=== PATIENT | male | born 1930 | race Caucasian/White ===

== ENCOUNTER 2016-11-09 11:51 | Emergency (ER) | payer MEDICARE, OTHER ==
[2013-09-26 14:28] VITALS: BMI 26.5
[~2016-11-09 11:51] MED LIST: ARICEPT10 MG PO; ASPIRIN325 MG PO; COUMADIN5 MG PO; COZAAR100 MG PO; ENABLEX7.5 MG PO; LOPRESSOR50 MG PO; PREDNISONE5 MG PO
[2016-11-09 14:47] LABS: BASOPHILS 0.2 % (0.0-2.0); HEMATOCRIT 50.4 % (42.0-54.0); HEMOGLOBIN 16.6 g/dL (13.5-17.5); IMMATURE GRANULOCYTES 0.2 % (0-5); LYMPHOCYTES 11.3 % (15-50); MCH 30.6 pg (26.0-34.0); MCHC 32.9 g/dL (31.0-37.0); MEAN PLATELET VOLUME 9.8 fL (7.4-10.4); MONOCYTES 13.1 % (2-11); NEUTROPHILS 74.2 % (40-80); RBC 5.42 10x6/uL (4.20-6.10); RDW 13.8 % (11.5-14.5); WBC 8.2 10x3/uL (4.8-10.8)
[2016-11-09 14:48] LABS: PLATELET COUNT 123 10x3/uL (130-400)
[2016-11-09 15:11] LABS: ALBUMIN 3.1 g/dL (3.4-5.0); ANION GAP 7.4 mmol/L (8-16); BILIRUBIN - TOTAL 0.6 mg/dL (0.2-1.3); CALCIUM 9.5 mg/dL (8.5-10.1); CARBON DIOXIDE 32.1 mmol/L (21.0-32.0); CREATININE - SERUM 1.5 mg/dL (0.6-1.3); POTASSIUM - SERUM 4.5 mmol/L (3.5-5.1)
[2016-11-09 15:53] LABS: APPEARANCE CLEAR (CLEAR); BILIRUBIN NEGATIVE (NEGATIVE); COLOR YELLOW (YELLOW); GLUCOSE NEGATIVE (NEGATIVE); KETONE NEGATIVE (NEGATIVE); LEUKOCYTE ESTERASE NEGATIVE (NEGATIVE); NITRITE NEGATIVE (NEGATIVE); PROTEIN NEGATIVE (NEGATIVE); SPECIFIC GRAVITY 1.015 (1.005-1.020); UROBILINOGEN NORMAL (NORMAL)
== END 2016-11-09 16:37 | disposition home or self-care (01) ==
LOC: D.ER 11:51
PROVIDERS: Emergency Medicine
DX: R10.9 Unspecified abdominal pain (principal); I10 Essential (primary) hypertension; F03.90 Unspecified dementia, unspecified severity, without behavioral disturbance, psychotic disturbance, mood disturbance, and anxiety; I25.10 Atherosclerotic heart disease of native coronary artery without angina pectoris

== ENCOUNTER 2017-02-07 20:42 | Inpatient (IN) | payer MEDICARE, OTHER ==
[~2017-02-07] VITALS: Ht 180.3 cm; Wt 75.6 kg
[2017-02-07 22:52] LABS: BASOPHILS 0.1 % (0-2); EOSINOPHILS 0.3 % (0-7); HEMATOCRIT 46.7 % (42.0-54.0); HEMOGLOBIN 15.4 g/dL (13.5-17.5); IMMATURE GRANULOCYTES 0.3 % (0-5); LYMPHOCYTES 8.7 % (15-50); MCH 30.9 pg (26.0-34.0); MCV 93.6 fL (80.0-100.0); MEAN PLATELET VOLUME 9.6 fL (7.4-10.4); MONOCYTES 10.3 % (2-11); NEUTROPHILS 80.3 % (40-80); PLATELET COUNT 114 10x3/uL (130-400); RBC 4.99 10x6/uL (4.20-6.10); RDW 14.2 % (11.5-14.5); WBC 10.7 10x3/uL (4.8-10.8)
[2017-02-07 23:13] LABS: ALBUMIN 3.1 g/dL (3.4-5.0); ANION GAP 10.9 mmol/L (8-16); BILIRUBIN - TOTAL 1.17 mg/dL (0.2-1.3); CALCIUM 9.2 mg/dL (8.5-10.1); CARBON DIOXIDE 29.3 mmol/L (21.0-32.0); CREATININE - SERUM 1.6 mg/dL (0.6-1.3); POTASSIUM - SERUM 4.2 mmol/L (3.5-5.1); PROTEIN - SERUM 6.4 g/dL (6.4-8.2)
[2017-02-08] VITALS (13 sets, daily range): BP systolic 93–112; BP diastolic 66–86; Ht 180.3 cm; Wt 75.6 kg
--- NOTE | 2017-02-08 09:00 | NUR ---
PT ARRIVED VIA STRETCHER FROM ER. NO FAMILY AT THIS TIME. PT EYES OPEN. DOES NOT FOLLOW COMMANDS. UNABLE TO ANSWER ANY QUESTIONS. HAS PIV TO RIGHT FOREARM. NS AT 75ML/HR. HR 113 UNCONTROLLED A-FIB. TEMP 99.5 ORAL. BP 103/67.
[2017-02-08 09:31] LABS: INR 1.18 (0.85-1.17); PROTIME 14.8 SECONDS (11.6-15.0)
--- NOTE | 2017-02-08 10:04 | NUR ---
SPOKE TO PATIENT KYLE JOHNSON. ASKS FOR DNR ORDER. SAYS THOSE WERE MR. JOHNSON'S WISHES. THIS WAS DISCUSSED WITH MYSELF AND YURI JOHNSON FROM [facility], WHO IS THE PATIENT'S SON.
--- NOTE | 2017-02-08 10:35 | NUR ---
CALLED DR BEATTY OFFICE REGARDING CODE STATUS AND INABILITY TO FOLLOW COMMANDS TO TAKE PO MEDICATIONS. SPOKE WITH ELIO. SHE WILL CALL BACK AFTER HAVING TALKED WITH DR BEATTY. SPOKE WITH DR CARIAS. IS REVIEWING PT XRAY. ASKS FOR NEBULIZER TREATMENT, FLUTTER VALVE AND A SPUTUM CULTURE.
--- NOTE | 2017-02-08 11:03 | NUR ---
DR CARIAS HAS BEEN IN TO SEE PATIENT. SUCTION ATTEMPTED FOR SPECIMEN. UNABLE TO OBTAIN SAMPLE AT THIS TIME. WILL ATTEMPT AGAIN LATER.
[2017-02-08] MEDS ORDERED: NAMENDA XR28 MG PO (12:08)
[2017-02-08] MEDS ORDERED: ALENDRONATE SOD70 MG PO (12:09)
[2017-02-08] MEDS ORDERED: ZYRTEC10 MG PO (12:13)
[2017-02-08] MEDS ORDERED: IPRATROPIUM BR42 MCG NASAL (12:14)
[2017-02-08] MEDS ORDERED: HYDROCODON-ACE1 EAC7 PO (12:15)
--- NOTE | 2017-02-08 12:19 | NUR ---
AT BEDSIDE AT THIS TIME. UPDATE PROVIDED.
--- NOTE | 2017-02-08 13:15 | NUR ---
16F MORENO CATHETER PLACED. NO RESISTANCE MET. NO BLEEDING NOTED. DARK URINE OUTPUT.
--- NOTE | 2017-02-08 15:09 | NUR ---
RELL WITH SPEECH HAS BEEN IN TO DO SWALLOW EVAL. SPOKE WITH ELIO AT DR BEATTY OFFICE. HE HAS BEEN UPDATED TO CODE STATUS. IS OK FOR PATIENT TO BE MOVED TO FLOOR, BUT WOULD LIKE HIM TO STAY IN ICU OVERNIGHT IF POSSIBLE. ASKS THAT HE BE CALLED IF PATIENT NEEDS TO BE MOVED OUT.
--- NOTE | 2017-02-08 15:20 | NUR ---
AND YOUNGEST SON AT BEDSIDE. UPDATE PROVIDED.
--- NOTE | 2017-02-08 16:57 | NUR ---
DR BEATTY CALLED TO ASK ABOUT BEING TALKED TO ABOUT PEG PLACEMENT. TOLD HIM I HAVE NOT DISCUSSED IT WITH HER. HE WAS GOING TO SPEAK TO HER ABOUT IT AND WOULD CALL BACK TO LET US KNOW ABOUT HER DECISION.
--- NOTE | 2017-02-08 18:41 | NUR ---
AT BEDSIDE FOR 1800 VISITATION. HAD QUESTIONS ABOUT HOSPICE. SAID SHE HAS SPOKE WITH DR BEATTY AND HE HAD MENTIONED PATIENT BEING UNABLE TO TAKE ANYTHING ORALLY. SHE SAID HE MENTIONED A FEEDING TUBE PLACEMENT, BUT SHE DID NOT WANT TO HAVE ONE PLACED. IT WAS NOT SOMETHING THE PATIENT WOULD WANT.
--- NOTE | 2017-02-08 19:50 | NUR ---
SPOKE TO DR PARRY WHO IS SPRINKLER FITTER HELPER FOR DR BEATTY THIS EVENING. LET HIM KNOW THAT DR BEATTY HAD SAID EARLIER THE PATIENT COULD BE TRANSFERED TO FLOOR, BUT HE WOULD LIKE TO BE NOTIFIED. DR PARRY WAS NOTIFIED AND WAS OK WITH PATIENT BEING MOVED TO MEDICAL FLOOR.
--- NOTE | 2017-02-08 20:34 | NUR ---
REPORT CALLED TO MARK ANTHONY. PT WILL BE GOING TO ROOM 220.
--- NOTE | 2017-02-08 20:37 | NUR ---
CALLED KYLE AND LET HER KNOW PT WOULD BE MOVING TO ROOM 2201.
[2017-02-09] VITALS (7 sets, daily range): BP systolic 102–140; BP diastolic 50–98
[2017-02-09 05:40] LABS: BASOPHILS 0 % (0-2); EOSINOPHILS 0 % (0-7); HEMATOCRIT 46.1 % (42.0-54.0); HEMOGLOBIN 15.3 g/dL (13.5-17.5); IMMATURE GRANULOCYTES 0.3 % (0-5); MCH 30.5 pg (26.0-34.0); MCHC 33.2 g/dL (31.0-37.0); MCV 91.8 fL (80.0-100.0); MEAN PLATELET VOLUME 9.8 fL (7.4-10.4); MONOCYTES 4.2 % (2-11); NEUTROPHILS 93.5 % (40-80); PLATELET COUNT 114 10x3/uL (130-400); RBC 5.02 10x6/uL (4.20-6.10); RDW 14.2 % (11.5-14.5)
[2017-02-09 05:42] LABS: WBC 15.9 10x3/uL (4.8-10.8)
[2017-02-09 05:48] LABS: INR 1.24 (0.85-1.17); PROTIME 15.5 SECONDS (11.6-15.0)
[2017-02-09 06:05] LABS: ALBUMIN 2.5 g/dL (3.4-5.0); ANION GAP 15.9 mmol/L (8-16); BILIRUBIN - TOTAL 1.17 mg/dL (0.2-1.3); CALCIUM 8.7 mg/dL (8.5-10.1); CARBON DIOXIDE 23.8 mmol/L (21.0-32.0); MAGNESIUM - SERUM 1.9 mg/dL (1.8-2.4); PHOSPHOROUS 2.9 mg/dL (2.5-4.9); POTASSIUM - SERUM 3.7 mmol/L (3.5-5.1); THYROID STIMULATING HORMONE 0.75 uIU/mL (0.36-3.74)
--- NOTE | 2017-02-09 11:03 | NUR ---
CALLED THE DATA ENTRY ASSISTANT, SHE SAID HE IS 93 CONTROLLED AFIB.
--- NOTE | 2017-02-09 11:06 | NUR ---
CALLED PHARMACY NOTIFIED THEM THAT WE DO NOT HAVE AN EXELON PATCH UP HERE. SHE STATED SHE WILL BRING IT UP.
--- NOTE | 2017-02-09 11:35 | NUR ---
CALLED PHARMACY SPOKE WITH KINGS NOTIFIED HER THAT WE DO NOT HAVE ANY CARDIZEM 60MG TABS AND I HAVE IT ORDERED TO GIVE 2200 ANGIE JOHNSON. SHE STATED OKAY I WILL BRING THAT UP.
--- NOTE | 2017-02-09 16:24 | NUR ---
DID NOT COLLECT SPUTUM DUE TO PATIENT NOT HAVING COUGHED OUT ANY SPUTUM.
--- NOTE | 2017-02-09 16:44 | NUR ---
PATIENT HAS MAROON COLORED BLOOD DRAINING INTO THE CATHETER AND DRIPPING FROM PENIS.
--- NOTE | 2017-02-09 16:52 | NUR ---
SPOKE WITH 'S NURSE MARY BALLARD. SHE SAID IS UNABLE TO COME TO THE PHONE SO SHE WILL RELAY THE MESSAGE TO HIM. NOTIFIED HER THAT IT IS URGENT, THAT THE PATIENT HAS MAROON COLORED PURE BLOOD GOING INTO THE CATHETER BAG AND BLOOD DRIPPING AROUND THE CATHETER FROM HIS PENIS. SHE PUT ME ON HOLD, THEN CAME BACK TO THE PHONE AND SAID "HE SAID TO DISCONTINUE THE MORENO CATHETER, AND DO A POST VOID RESIDUAL." I STATED "OKAY, DID YOU TELL HIM THAT IT IS PURE BLOOD? NOT BLOOD TINGED." SHE STATED "YES I TOLD HIM." I STATED "OKAY, WELL I AM WONDERING IF HE WANTS AN H&H ORDERED? ALSO I AM CONCERNED BECAUSE HIS FLUIDS ARE GOING IN AT 125ML/HR SO IN THE PAST 12 HOURS HE HAS HAD IN 1500ML AND ONLY LIKE 325 OUT INCLUDING THE BLOOD. PLUS HE IS DRINKING FLUIDS TOO. AND HIS CREATININE WAS HIGHER TODAY THEN YESTERDAY." SHE STATED "OKAY HOLD ON I WILL TELL HIM." SHE CAME BACK TO THE PHONE AND SAID, "HE SAID JUST WAIT ON THE H&H UNTIL IN THE MORNING. AND JUST CONTINUE TO WATCH HIM."
--- NOTE | 2017-02-09 17:30 | NUR ---
ASSISTED PATIENT WITH DINNER.PATIENT ATE 90%.
[2017-02-10] VITALS: BP 102/66
[2017-02-10 04:00] VITALS: BP 114/70
[2017-02-10 05:10] LABS: BASOPHILS 0 % (0-2); EOSINOPHILS 0 % (0-7); HEMATOCRIT 39.3 % (42.0-54.0); HEMOGLOBIN 12.8 g/dL (13.5-17.5); IMMATURE GRANULOCYTES 0.3 % (0-5); LYMPHOCYTES 1.4 % (15-50); MCHC 32.6 g/dL (31.0-37.0); MEAN PLATELET VOLUME 10.2 fL (7.4-10.4); MONOCYTES 4.1 % (2-11); NEUTROPHILS 94.2 % (40-80); PLATELET COUNT 122 10x3/uL (130-400); RBC 4.27 10x6/uL (4.20-6.10); RDW 14.4 % (11.5-14.5); WBC 17.5 10x3/uL (4.8-10.8)
--- NOTE | 2017-02-10 05:11 | NUR ---
BLADDER SCAN COMPLETED AFTER THE PATIENT HAD INCONTINENT EPISODE. BLADDER SCAN REVEALED 73ML.
--- NOTE | 2017-02-10 05:11 | NUR ---
BLOOD AND SMALL CLOTS NOTED ON BLUE PAD AFTER THE PATIENT URINATED.
[2017-02-10 05:26] LABS: ALBUMIN 2.5 g/dL (3.4-5.0); ANION GAP 14.3 mmol/L (8-16); BILIRUBIN - TOTAL 0.69 mg/dL (0.2-1.3); CALCIUM 8.3 mg/dL (8.5-10.1); CARBON DIOXIDE 23.3 mmol/L (21.0-32.0); CREATININE - SERUM 1.9 mg/dL (0.6-1.3); MAGNESIUM - SERUM 1.9 mg/dL (1.8-2.4); PHOSPHOROUS 2.3 mg/dL (2.5-4.9); POTASSIUM - SERUM 3.6 mmol/L (3.5-5.1); PROTEIN - SERUM 5.5 g/dL (6.4-8.2)
--- NOTE | 2017-02-10 07:35 | NUR ---
PT AOX4 RESP EVEN AND NONLABORED PT DENIES NEEDS AT THIS TIME IV TO LEFT FOREARM PATENT AND INTACT SRX2 BED AT LOWEST SETTING CALL LIGHT WITHIN REACH WILL CONTINUE TO MONITOR
[2017-02-10 08:08] VITALS: BP 120/74
--- NOTE | 2017-02-10 11:06 | NUR ---
* Is the patient Alert and Oriented? Yes 0 * How many steps to enter\exit or inside your home? 0 0 * PCP JACI 0 * [facility] * Preadmission Environment Intermediate 0 * ADLs Total Dependent 0 * Equipment Cane Elevated [place] Seat Rolling Walker Walker Wheelchair 0 * List name and contact numbers for known caregivers / representatives who currently or will assist patient after discharge: Niyah () [phone] 0 * Additional services required to return to the preadmission environment? Yes 0 * Can the patient safely return to the preadmission environment? No 0 * Has this patient been hospitalized within the prior 30 days at any hospital? No 0 Grand Total: 0 Patient Name: ANGIE JOHNSON Admission Status: ER Accout number: [id number] Admission Date: 02-08-2017 : 1932 Admission Diagnosis:ALTERED MENTAL STATUS, UNSPECIFIED Attending: MARC Current LOS: 2 Anticipated DC Date: Planned Disposition: Primary Insurance: MEDICARE A & B Discharge Planning Comments: CM met with patient and (Niyah) to discuss discharge planning/needs. Patient's states that she can not take him home. Dr Martin spoke with patient's family about Hospice Vs. SNF. would like to speak with Hospice to get more information. [facility] referral sent. CM will continue to follow and assist as needed. PCP: [facility] Pharmacy: [facility] Johnson () [phone] Supervisor Final: Radha San
[2017-02-10 12:25] VITALS: BP 116/55
--- NOTE | 2017-02-10 12:26 | NUR ---
NUTRITION MONITORING & EVAL CHART REVIEWED. NOTE POSSIBLE HOSPICE. FAMILY REPORTS PT WITH MINIMAL PO AT BREAKFAST. RD FOLLOWING
--- NOTE | 2017-02-10 14:39 | CN ---
PATIENT NAME:ANGIE JOHNSON JR MEDICAL RECORD: [id number] : 32 LOCATION:[facility] ADMIT DATE: 02/08/17 ACCOUNT: [id number] CONSULTING PHYSICIAN: CLARIBEL OLIVERA MD REFERRING PHYSICIAN: ESME BEATTY DO DATE OF CONSULTATION: 02/09/2017 HISTORY OF PRESENT ILLNESS: An 86-year-old gentleman with a history of worsening mental status, apparently fell on his head over the past several days, cough, fever and chills. He has a history of baseline dementia and currently reports he is feeling fairly well, known to be in atrial fibrillation with rapid ventricular response. He is in chronic atrial fibrillation with Coumadin for CVA prophylaxis. We are asked to see him concerning his cardiovascular status. PAST MEDICAL HISTORY: Per chart includes: 1. History of atrial fibrillation. 2. Dementia. 3. Sick sinus syndrome, status post pacemaker placement. MEDICATIONS: Typically include Namenda 20 mg p.o. q. day, Fosamax ____ mg p.o. q. day, Jackson 5/325 one q. 6 p.r.n., Coumadin per scale, Aricept 10 mg p.o. q.h.s., Enablex 7.5 q. day, Cozaar 100 q. day, metoprolol 50 b.i.d., and prednisone 5 mg daily. ALLERGIES: None known. REVIEW OF SYSTEMS: Unobtainable due to the patient factors. PHYSICAL EXAMINATION: GENERAL: Unkempt gentleman, in no acute distress. VITAL SIGNS: 140/98, pulse 141, irregular. HEENT: Normocephalic and atraumatic. NECK: No bruits are noted. HEART: Irregular, tachycardic, II/ systolic ejection murmur. LUNGS: Fairly good air excursion. ABDOMEN: Soft, nontender. EXTREMITIES: Pulses are 1+. There is no edema. IMPRESSION: Atrial fibrillation, rapid ventricular response, agree with stopping Coumadin given his advanced dementia. Typically, in view of his recent fall at this point in time, we will add oral Cardizem to hopefully help with rate control in addition to his beta blockade. Further recommendations based on the above. TRANSINT:[id number] Voice Confirmation ID: [id number] DOCUMENT ID: [id number] CLARIBEL OLIVERA MD at 1439 CC: [id number] DICTATION DATE: 02/09/17 1041 MOTOR INSPECTION MECHANIC: 02/09/17 1445 ADM IN [place] [id number] [place] [id number]
[2017-02-10 16:59] VITALS: BP 112/62
--- NOTE | 2017-02-10 19:10 | NUR ---
ASSESSMENT COMPLETED, NO ACUTED DISTRESS NOTED, NC IN PLACE @ 2L, L FOREARM IV INFUSING, DENIES PAIN OR NEEDS AT THIS TIME, SR'S UP, BED ALARM ON, CL IN REACH, WILL MONITOR
[2017-02-10 20:00] VITALS: BP 106/67
--- NOTE | 2017-02-10 20:23 | NUR ---
MEDS GIVEN PER MAR WITH HOB @ 90 DEGREES, CELI WELL, SAFETY MEASURES IN PLACE, CL IN REACH
--- NOTE | 2017-02-10 22:28 | NUR ---
SITTING UP IN BED WATCHING TV, NO DISTRESS NOTED, SAFETY MEASURES IN PLACE, WILL CONTINUE TO MONITOR, CL IN REACH
--- NOTE | 2017-02-10 23:49 | NUR ---
RESTING WITH EYES CLOSED, RESP WITH EASE, NC IN PLACE, SR'S UP, ALARM ON, CL IN REACH
[2017-02-11] VITALS: BP 110/68
[2017-02-11 04:00] VITALS: BP 114/69
[2017-02-11 05:15] LABS: ANION GAP 13.7 mmol/L (8-16); CALCIUM 8.4 mg/dL (8.5-10.1); CARBON DIOXIDE 22.7 mmol/L (21.0-32.0); CREATININE - SERUM 1.6 mg/dL (0.6-1.3); POTASSIUM - SERUM 3.4 mmol/L (3.5-5.1)
--- NOTE | 2017-02-11 07:30 | NUR ---
PT AX1 CONFUSED AT TIMES RESP EVEN AND NONLABORED IV TO LEFT FOREARM PATENT AND INTACT SRX2 BED AT LOWEST SETTING CALL LIGHT WITHIN REACH WILL CONTINUE TO MONITOR
[2017-02-11 08:16] VITALS: BP 131/78
[2017-02-11 12:37] VITALS: BP 126/73
[2017-02-11 16:48] VITALS: BP 101/71
--- NOTE | 2017-02-11 19:10 | NUR ---
PT LYING IN BED AWAKE, ASSESSMENT COMPLETED, NO ACUTE DISTRESS NOTED, PLEASANTLY CONFUSED, L FOREARM IV INFUSING, SR'S UP, X2, BED ALARM ON, CL IN REACH, WILL MONITOR
[2017-02-11 20:00] VITALS: BP 99/60
--- NOTE | 2017-02-11 21:18 | NUR ---
LYING IN BED AWAKE, NO DISTRESS NOTED, DENIES PAIN OR NEEDS, FALL PRECAUTIONS IN PLACE, ALARM ON, CL IN REACH
--- NOTE | 2017-02-11 23:23 | NUR ---
NO DISTRESS NOTED, DENIES PAIN OR DISCOMFORT, FALL PRECAUTIONS IN PLACE, CL IN REACH
[2017-02-12] VITALS: BP 109/75
--- NOTE | 2017-02-12 01:16 | NUR ---
RESTING WITH EYES CLOSED, RESP WITH EASE, NO DISTRESS NOTED, FALL PRECAUTIONS IN PLACE, ALARM ON, CL IN REACH
[2017-02-12 04:00] VITALS: BP 114/74
[2017-02-12 06:43] LABS: BASOPHILS 0.1 % (0-2); EOSINOPHILS 0 % (0-7); HEMATOCRIT 39.1 % (42.0-54.0); HEMOGLOBIN 12.6 g/dL (13.5-17.5); IMMATURE GRANULOCYTES 0.4 % (0-5); LYMPHOCYTES 2.1 % (15-50); MCH 30.1 pg (26.0-34.0); MCHC 32.2 g/dL (31.0-37.0); MCV 93.5 fL (80.0-100.0); MEAN PLATELET VOLUME 9.9 fL (7.4-10.4); NEUTROPHILS 92.4 % (40-80); RBC 4.18 10x6/uL (4.20-6.10); RDW 14.6 % (11.5-14.5); WBC 11.8 10x3/uL (4.8-10.8)
[2017-02-12 06:57] LABS: PLATELET COUNT 93 10x3/uL (130-400)
[2017-02-12 07:05] LABS: ANION GAP 14.4 mmol/L (8-16); CALCIUM 8.1 mg/dL (8.5-10.1); CREATININE - SERUM 1.3 mg/dL (0.6-1.3); POTASSIUM - SERUM 4.4 mmol/L (3.5-5.1)
[2017-02-12 07:16] LABS: PLATELET ESTIMATE DECREASED
--- NOTE | 2017-02-12 07:40 | NUR ---
PT CONFUSED AT TIMES RESP EVEN AND NONLABORED IV TO LEFT FOREARM PATENT AND INTACT PT ALERT AND ACTIVE TRYING TO GET OUT OF BED, BED ALARM ACTIVATED AND MONITORING PT CLOSELY SRX2 BED AT LOWEST SETTING CALL LIGHT WITHIN REACH
[2017-02-12 08:38] VITALS: BP 156/72
[2017-02-12 12:13] VITALS: BP 144/73
[2017-02-12 18:49] VITALS: BP 121/61
--- NOTE | 2017-02-12 19:10 | NUR ---
PT LYING IN BED AWAKE, ASSESSMENT COMPLETED, NO ACUTE DISTRESS NOTED, PLEASANTLY CONFUSED, IV TO L FOREARM IN FUSING, SR'S UP, BED ALARM ON, CL IN REACH, WILL MONITOR
[2017-02-12 20:00] VITALS: BP 130/74
--- NOTE | 2017-02-12 20:30 | NUR ---
MEDS GIVEN PER MAR WITH HOB AT 90 DEGREES, NO SWALLOWING PROBLEMS NOTED, CELI WELL, SAFETY MEASURES IN PLACE
--- NOTE | 2017-02-12 21:28 | NUR ---
LYING IN BED AWAKE, NO DISTRESS NOTED, SR'S UP, BED ALARM ON, CL IN REACH
[2017-02-13] VITALS: BP 149/91
--- NOTE | 2017-02-13 01:31 | NUR ---
RESTING WITH EYES CLOSED, NO DISTRESS NOTED, FALL PRECAUTIONS IN PLACE, ALARM ON, CL IN REACH
[2017-02-13 04:00] VITALS: BP 154/91
[2017-02-13 07:50] VITALS: BP 156/83
[2017-02-13 08:20] LABS: BASOPHILS 0.1 % (0-2); EOSINOPHILS 0.1 % (0-7); HEMATOCRIT 40.3 % (42.0-54.0); HEMOGLOBIN 13.3 g/dL (13.5-17.5); IMMATURE GRANULOCYTES 1.2 % (0-5); LYMPHOCYTES 3.5 % (15-50); MCH 29.9 pg (26.0-34.0); MCV 90.6 fL (80.0-100.0); MEAN PLATELET VOLUME 10.3 fL (7.4-10.4); MONOCYTES 7.7 % (2-11); NEUTROPHILS 87.4 % (40-80); PLATELET COUNT 107 10x3/uL (130-400); RBC 4.45 10x6/uL (4.20-6.10); RDW 14.4 % (11.5-14.5); WBC 10.5 10x3/uL (4.8-10.8)
[2017-02-13 08:35] LABS: ALBUMIN 2.6 g/dL (3.4-5.0); BILIRUBIN - TOTAL 0.93 mg/dL (0.2-1.3); CARBON DIOXIDE 22.2 mmol/L (21.0-32.0); POTASSIUM - SERUM 4.2 mmol/L (3.5-5.1); PROTEIN - SERUM 5.5 g/dL (6.4-8.2)
[2017-02-13 09:20] LABS: CALCIUM 8.8 mg/dL (8.5-10.1); CREATININE - SERUM 1.3 mg/dL (0.6-1.3)
--- NOTE | 2017-02-13 09:50 | NUR ---
PATIENT IN LOW [place] POSITION RESTING WITH EYES CLOSED. RESPIRATIONS EVEN AND UNLABORED. SIDE RAILS UP X2. BED IN LOW POSITION. CALL LIGHT IN REACH.
--- NOTE | 2017-02-13 11:51 | NUR ---
Late Entry 1000 Patient's requested discharge to home w/ Hospice. She had spoken with Ms Jordan from [facility] this past week. CM called [facility] and spoke with Janet, the on- call nurse. She will have the [facility] nurse to contact family. The family would like to take the patient home today. The states she will need a hospital bed at home. CM explained the hospice will arrange for necessary equipment. CM provided contact phone for [facility] to call. Awaiting CB.
[2017-02-13 12:32] VITALS: BP 172/105
--- NOTE | 2017-02-13 12:49 | NUR ---
Awaiting [facility] CB. Spoke with patient's . She has not received a call as of this time. She will be returning to home to prepare for discharge.
[2017-02-13 15:48] VITALS: BP 133/77
--- NOTE | 2017-02-13 18:08 | NUR ---
Late entry 1500 CM called Mrs Bingham. She had not heard from [facility]. CM called [facility]. Spoke with the service regarding lack of consideration in confirming the referral for a known patient. The had been waiting since this AM. She had return to the home to prepare for 's arrival. Her direct contact number had been provided. Received a call from the . [facility] had called her and will see her tomorrow.
--- NOTE | 2017-02-13 18:13 | NUR ---
Mrs Bingham's phone contact- [phone].
--- NOTE | 2017-02-13 19:20 | NUR ---
PT LYING IN BED RESTING WITH EYES CLOSED, RESP WITH EASE, NO DISTRESS NOTED, SR'S UP, BED LOW WITH ALARM ON, CL IN REACH, DOOR OPEN FOR EASY VIEWING, WILL MONITOR
[2017-02-13 20:00] VITALS: BP 145/87
--- NOTE | 2017-02-13 20:52 | NUR ---
MEDS GIVEN PER MAR WITH HOB @ 90 DEGREES, CELI WELL, NO COUGHING OR DISTRESS NOTED, SAFETY MEASURES IN PLACE, CL IN REACH
--- NOTE | 2017-02-13 21:28 | NUR ---
RESTING WITH EYES CLOSED, NO DISTRESS NOTED, SAFETY MEASURES IN PLACE, WILL CONTINUE TO MONITOR
--- NOTE | 2017-02-13 23:26 | NUR ---
RESTING WITH EYES CLOSED, NO DISTRESS NOTED, AROUSES TO VOICE, FALL PRECAUTIONS IN PLACE, BED ALARM ON, CL IN REACH
[2017-02-14] VITALS: BP 152/80
[2017-02-14 04:00] VITALS: BP 144/82
--- NOTE | 2017-02-14 07:48 | NUR ---
RESTING QUIETLY WITH EYES CLOSED. RESPONDS TO NAME. LUNGS HAVE WHEEZES THROUGHOUT LUNG FIELD AND DIMINISHED THROUGHOUT NO COUGH NOTED. SKIN IS INTACT WITHOUT REDNESS. SOME EDEMA NOTED TO BILATERAL UPPER EXTREMETIES. IV TO LEFT FOREARM IS PATENT WITHOUT REDNESS AT INSERTION SITE. NO NEEDS NOTED.
[2017-02-14 07:50] VITALS: BP 172/99
--- NOTE | 2017-02-14 08:10 | NUR ---
Spoke with and Alyssa at [facility] and she stated that she would be up here at 9:30 to sign for equipment. I confirmed that with [facility]
[2017-02-14] MEDS ORDERED: CARDIZEM60 MG PO (08:46)
[2017-02-14] MEDS ORDERED: LEVAQUIN500 MG PO (08:50)
--- NOTE | 2017-02-14 10:16 | NUR ---
ATE ALL OF BREAKFAST WITH STAFF FEEDING. PLACED ON BED SALOMON AT THIS TIME.
[2017-02-14 11:30] VITALS: BP 141/73
--- NOTE | 2017-02-14 12:30 | NUR ---
Patient is discharging home today with [facility]. Patient will transport by ambulance & equipment is being set up by [facility]. Family is aware.
--- NOTE | 2017-02-14 12:30 | NUR ---
REFUSED TO EAT ANY LUNCH. STATED HE WAS STILL FULL.
--- NOTE | 2017-02-14 14:15 | NUR ---
DISCHARGED TO HOME VIA AMBULANCE WITH HOSPICE. FAMILY AWARE OF DISCHARGE. PATIENT UNABLE TO SIGN DISCHARGE PAPERS. IV TO LEFT FOREARM D/C WITH CATHETER INTACT.
== END 2017-02-14 14:15 | disposition home health service (06) | DRG 178 ==
LOC: D.ER 20:42 → D.MS 02-08 06:20 → D.ER 02-08 06:20 → D.ICU 02-08 06:20 → OBSVTIME 02-08 06:20 → D.ICU 02-08 07:02 → D.MS 02-08 07:02 → D.CVICU 02-08 08:20 → D.MS 02-08 08:20 → D.CVICU 02-08 08:22 → D.MS 02-08 08:22 → D.ICU 02-08 08:41 → D.MS 02-08 20:51
PROVIDERS: Emergency Medicine; Internal Medicine Pulmonary Disease; ADMIT Family Medicine
DX: J69.0 Pneumonitis due to inhalation of food and vomit (principal); N17.9 Acute kidney failure, unspecified; F03.90 Unspecified dementia, unspecified severity, without behavioral disturbance, psychotic disturbance, mood disturbance, and anxiety; S00.93XA Contusion of unspecified part of head, initial encounter; Z66 Do not resuscitate; W19.XXXA Unspecified fall, initial encounter; Z79.01 Long term (current) use of anticoagulants; I12.9 Hypertensive chronic kidney disease with stage 1 through stage 4 chronic kidney disease, or unspecified chronic kidney disease; N18.9 Chronic kidney disease, unspecified; M06.9 Rheumatoid arthritis, unspecified; I25.10 Atherosclerotic heart disease of native coronary artery without angina pectoris; Z95.5 Presence of coronary angioplasty implant and graft; I48.91 Unspecified atrial fibrillation; Z95.0 Presence of cardiac pacemaker